=== PATIENT | male | born 1975 | race Caucasian/White ===

== ENCOUNTER 2020-01-23 16:40 | Emergency (ER) | payer OTHER, SELFPAY ==
--- NOTE | ~2020-01-23 | CT_ITS ---
EXAMINATION: CT soft tissue neck w con DATE: 01/23/2020 18:26 INDICATION: Left facial and neck swelling. TECHNIQUE: Computed tomography (CT) of the neck was performed with 100 mL Omnipaque-350 intravenous c ontrast. Automated exposure control and iterative reconstruction technique were employed. The dose-le ngth product was 569.09 mGy-cm. COMPARISON: None FINDINGS: Skin thickening and subtle subcutaneous stranding at the left cheek. No abscess or other abnormal flu id collections. Submandibular and parotid glands are symmetric. There are scattered normal-sized lym ph nodes in the neck, no lymphadenopathy. No masses identified. Thyroid gland is unremarkable. Orbits , paranasal sinuses, mastoid air cells and middle ear cavities are normal. Visualized portions of the brain are unremarkable. The vasculature is patent and normal in caliber with contrast mixing and brionna w artifact in the bilateral internal jugular veins. Airway is unremarkable. Superior mediastinum is unremarkable. Mild lower thoracic spondylosis.No acute osseous abnormality. Mild emphysema at the ri ght apex. IMPRESSION: 1. Nonspecific skin thickening and subtle subcutaneous stranding at the left cheek which could be rel ated to cellulitis. No abscess. Reviewed, dictated and finalized at location A. T CULTURE OPERATOR IMPRESSION: 1. Nonspecific skin thickening and subtle subcutaneous stranding at the left ch washoe which could be related to cellulitis. No abscess.
[2020-01-23 16:45] VITALS: BP 133/92; PULSE 86; RESP 20; TEMP 36.5; O2SAT 99
[2020-01-23 17:49] LABS: Basophils Absolute Auto 0.1 K/mm3 (0.0-0.1); Basophils Percent Auto 0.5 % (0.2-1.2); Eosinophils Absolute Auto 0.2 K/mm3 (0-0.3); Eosinophils Percent Auto 1.6 % (0-4.4); Hemoglobin 15.9 g/dL (14.0-18.0); Immature Granulocyte Absolute 0.04 K/mm3 (0.00-0.031); Immature Granulocyte Percent A 0.4 % (0-0.5); Lymphocytes Absolute Auto 2.69 K/mm3 (0.9-3.2); Lymphocytes Percent Auto 24.5 % (18.3-44.2); Mean Corpuscular HGB Conc 33.1 g/dl (32-36); Mean Corpuscular Hemoglobin 30.7 pg (26-34); Mean Corpuscular Volume 92.7 fl (80-100); Mean Platelet Volume 10.9 fl (7.4-10.4); Monocytes Absolute Auto 0.9 K/mm3 (0.1-0.6); Monocytes Percent Auto 7.9 % (2.6-8.5); Neutrophils Absolute Auto 7.1 K/mm3 (1.3-6.7); Neutrophils Percent Auto 65.1 % (45.5-73.1); Platelet Count Result 296 k/mm3 (150-375); Red Blood Count 5.18 M/mm3 (4.6-6.20); Red Cell Distribution Width 12.9 % (11.5-14.5)
--- NOTE | 2020-01-23 17:55 | ED.SKABFB ---
HPI - Skin/Abscess/Foreign Bdy General Chief complaint: Skin/Abscess/Foreign Body Stated complaint: NECK SWELLING Time Seen by Provider: 01/23/20 16:46 History of Present Illness HPI narrative: Patient is a 44-year-old male who presents the ER for further evaluation of facial infection. Noticed something similar to a pimple couple days ago which he scratched at. Since then he has had some increased swelling and drainage to the left cheek and swelling going down into the left neck. No difficulty breathing or swallowing. He has been afebrile. He went to his PCPs office today who recommended blood work as well as CT scan of the face. Insurance would not cover the CT scan so he ended up in the ER for further evaluation. He has been given a prescription of antibiotics but has yet to fill them. Related Data Home Medications Medication Instructions Recorded Confirmed dexlansoprazole [Dexilant] mg 01/23/20 tramadol mg 01/23/20 Allergies Allergy/AdvReac Type Severity Reaction Status Date / Time No Known Allergies Allergy Verified 01/23/20 18:57 Review of Systems Review of Systems: All systems reviewed & are unremarkable except as noted in HPI and below Constitutional: Constitutional: Denies chills and Denies fever(s) ENT: Reports system reviewed and no additional complaints, except as documented Respiratory: Respiratory: Denies dyspnea Integumentary/Breasts: Comments: Draining lesions left cheek. PMFSH Past Medical History Medical History (Updated 01/23/20 @ 18:57 by Hayden Rasmussen MD) Carpal tunnel syndrome on both sides Surgical History Surgical History (Updated 01/23/20 @ 17:58 by Hayden Rasmussen MD) H/O shoulder surgery Social History Social History (Updated 01/23/20 @ 17:58 by Hayden Rasmussen MD) Substance use type: does not use Exam Narrative: Exam Narrative: GENERAL: Well-appearing, well-nourished, and in no acute distress. HEAD: Normocephalic, atraumatic. ENT: Mucous membranes moist. Crusted lesions of the left cheek underneath the estevez mild tenderness and slight erythema of the skin. NECK: Supple. No observed swelling of the neck or clavicles. CHEST: Clear to auscultation. No respiratory distress. HEART: Regular rate and rhythm. Normal peripheral pulses. EXTREMITIES: Normal range of motion. No edema. NEURO: Alert and oriented x3. PSYCH: Normal mood and affect. Course Course Emergency Course: Informed of results. His is picked up clindamycin. We will also prescribe Bactroban. Discharge home. Vital Signs Vital signs: Vital Signs Temperature 97.7 F 01/23/20 16:45 Pulse Rate 86 01/23/20 16:45 Respiratory Rate 20 01/23/20 16:45 Blood Pressure 133/92 H 01/23/20 16:45 Pulse Oximetry 99 01/23/20 16:45 Temperature 97.7 F 01/23/20 16:45 Pulse Rate 86 01/23/20 16:45 Respiratory Rate 01/23/20 16:45 Blood Pressure 133/92 H 01/23/20 16:45 Pulse Oximetry 99 01/23/20 16:45 MDM - Skin/Abscess/Foreign Bdy Lab Data Result diagrams: 01/23/20 17:38 01/23/20 17:38 Labs: Lab Results 01/23/20 01/23/20 Range/Units 17:38 17:38 WBC 11.0 H (4.5-10.0) K/mm3 RBC 5.18 (4.6-6.20) M/mm3 Hgb 15.9 (14.0-18.0) g/dL Hct 48.0 (42.0-52.0) % MCV 92.7 (80-100) fl MCH 30.7 (26-34) pg MCHC 33.1 (32-36) g/dl RDW 12.9 (11.5-14.5) % Plt Count 296 (150-375) k/mm3 MPV 10.9 H (7.4-10.4) fl Immature Gran % (Auto) 0.4 (0-0.5) % Neut % (Auto) 65.1 (45.5-73.1) % Lymph % (Auto) 24.5 (18.3-44.2) % Davis % (Auto) 7.9 (2.6-8.5) % Eos % (Auto) 1.6 (0-4.4) % Baso % (Auto) 0.5 (0.2-1.2) % Lymph # (Auto) 2.69 (0.9-3.2) K/mm3 Davis # (Auto) 0.9 H (0.1-0.6) K/mm3 Eos # (Auto) 0.2 (0-0.3) K/mm3 Baso # (Auto) 0.1 (0.0-0.1) K/mm3 Abs Immat Gran (auto) 0.04 H (0.00-0.031) K/mm3 Absolute Neuts (auto) 7.1 H (1.3-6.7) K/mm3 Absolute Nucleated RBC 0.0
[2020-01-23 18:01] LABS: Blood Urea Nitrogen 9 mg/dL (9-20); Calcium 9.1 mg/dL (8.4-10.2); Carbon Dioxide 27 mmol/L (22-30); Chloride 98 mmol/L (98-107); Estimated CRCL calculation 120 ml/min; Estimated Glomerular Filt Rate > 60; Glucose 89 mg/dL (75-110); Potassium 3.8 mmol/L (3.4-5.0); Sodium 139 mmol/L (137-145)
[2020-01-23 19:06] VITALS: BP 130/78; PULSE 80; RESP 20; TEMP 36.8; O2SAT 99
== END 2020-01-23 19:07 | disposition home or self-care (01) ==
PROVIDERS: Emergency Provider Emergency Medicine; PCP Internal Medicine
DX: L03.211 Cellulitis of face (principal)
CPT/HCPCS: 36415; 70491; 80048; 85025; 99284; Q9967

== ENCOUNTER 2022-01-09 08:03 | Outpatient (CLI) | payer OTHER, SELFPAY ==
[2022-01-09 08:47] LABS: Basophils Absolute Auto 0.04 K/mm3 (0.00-0.10); Basophils Percent Auto 0.6 % (0.0-1.0); Eosinophils Absolute Auto 0.32 K/mm3 (0.02-0.50); Eosinophils Percent Auto 5.1 % (1.0-6.0); Hemoglobin 15.1 g/dL (14.0-18.0); Immature Granulocyte Absolute 0.01 K/mm3 (0.00-0.00); Immature Granulocyte Percent A 0.2 % (0.0-0.0); Lymphocytes Absolute Auto 2.56 K/mm3 (1.10-4.50); Mean Corpuscular HGB Conc 32.8 g/dL (32.0-36.0); Mean Corpuscular Hemoglobin 30.9 pg (27.0-31.0); Mean Corpuscular Volume 94.3 fL (78.0-102.0); Mean Platelet Volume 10.2 fl (8.7-11.0); Monocytes Absolute Auto 0.61 K/mm3 (0.10-0.90); Monocytes Percent Auto 9.8 % (2.0-11.0); Neutrophils Absolute Auto 2.7 K/mm3 (1.7-7.2); Neutrophils Percent Auto 43.3 % (50.0-70.0); Platelet Count Result 279 K/mm3 (150-420); Red Blood Count 4.88 M/mm3 (4.70-6.10); Red Cell Distribution Width 13.1 % (11.6-14.4); White Blood Count 6.3 K/mm3 (4.8-10.8)
[2022-01-09 09:09] LABS: Alanine Aminotransferase 56 U/L (16-63); Albumin Level 3.8 g/dL (3.4-5.0); Alkaline Phosphatase 62 U/L (46-116); Anion Gap 8 mmol/L (8-16); Aspartate Amino Transferase 20 U/L (15-37); Bilirubin,Total 0.3 mg/dL (0.00-1.00); Blood Urea Nitrogen 10 mg/dL (7-18); Calcium 8.6 mg/dL (8.5-10.1); Carbon Dioxide 30 mmol/L (21-32); Chloride 105 mmol/L (98-108); Cholesterol 203 mg/dL (0-200); Estimated Glomerular Filt Rate > 60; Glucose 104 mg/dL (70-99); HDL Direct 44 mg/dL (40-60); LDL Cholesterol Calculated 148 mg/dL (<130); Osmolality Calculated 295 mOsm/kg (285-295); Potassium 4.9 mmol/L (3.5-5.1); Sodium 143 mmol/L (136-145); Thyroid Stimulating Hormone 1.51 uIU/mL (0.36-3.74); Total Protein 6.8 g/dL (6.4-8.2); Triglycerides 56 mg/dL (0-150)
[2022-01-12 20:47] LABS: T4 Thyroxine 6.2 mcg/dL (4.9-10.5)
[2022-01-13 06:53] LABS: Total Triiodothyronine (T3) 135 ng/dL (76-181)
[2022-01-14 11:57] LABS: Testosterone Free 99.8 pg/mL (35.0-155.0); Testosterone Total 504 ng/dL (250-1100)
== END 2022-01-09 08:04 | disposition home or self-care (01) ==
LOC: CHSLAB 08:05
PROVIDERS: PCP Internal Medicine; Visit Provider Internal Medicine
DX: R53.83 Other fatigue (principal); K21.9 Gastro-esophageal reflux disease without esophagitis
CPT/HCPCS: 36415; 80053; 80061; 84402; 84403; 84436; 84443; 84480; 85025

== ENCOUNTER 2022-10-02 07:20 | Emergency (ER) | payer OTHER, SELFPAY ==
--- NOTE | ~2022-10-02 | XR_ITS ---
XR hand RT min 3V DATE: 10/02/2022 07:46 INDICATION: Right hand pain TECHNIQUE: 3 views COMPARISON: None FINDINGS: No fracture or dislocation, periosteal reaction or bone destruction, joint space narrowing, erosive change or chondrocalcinosis. IMPRESSION: Negative Reviewed, dictated and finalized at location A. IMPRESSION: Negative
[2022-10-02 07:25] VITALS: BP 155/90; PULSE 89; RESP 16; TEMP 36.6; O2SAT 96
--- NOTE | 2022-10-02 07:56 | ED.UPPEXIN ---
HPI - Extremity Injury (Upper) General Chief Complaint: Extremity Injury, Upper Stated Complaint: right hand injury Time Seen by Provider: 10/02/22 07:25 Source: patient Mode of arrival: ambulatory Limitations: no limitations History of Present Illness HPI narrative: this is a 46-year-old gentleman that presents with a right hand injury that occurred while at work it was wearing gloves in had his hand and glove caught in a rotator twisting the glove off and causing inflammation and swelling of the right hand with some bruising, patient took pain medication prior to arrival current pain levels about a 5/10 has good range of motion although tender and swelling does feel some throbbing and slight numbness at the tip of his right thumb. Otherwise have has good radial pulses on the right. complaint: injury to: right Onset (ago): hour(s) Other Extremity Injury: Right: hand ( bruising with swelling) Handedness: right Place: work Severity: moderate Severity scale (1-10): 5 Relieving factors: cold therapy and immobilization Exacerbating factors: movement of extremity Context: injury Associated symptoms: denies other symptoms Treatments prior to arrival: NSAIDS Related Data Home Medications Medication Instructions Recorded Confirmed dexlansoprazole 60 mg 60 mg PO DAILY 01/23/20 10/02/22 capsule,biphase delayed release (Dexilant) tramadol 50 mg tablet 50 mg PO PRN PRN Pain 01/23/20 10/02/22 Allergies Allergy/AdvReac Type Severity Reaction Status Date / Time No Known Allergies Allergy Verified 10/02/22 08:19 Review of Systems Review of Systems: All systems reviewed & are unremarkable except as noted in HPI and below PMFSH Past Medical History Medical History Carpal tunnel syndrome on both sides Surgical History Surgical History H/O shoulder surgery Social History Social History Substance use type: does not use Exam Const: General: healthy appearing, no acute distress and alert Nutritional Appearance: well nourished Orientation/consciousness: patient oriented x3 Limitations: no limitations HENMT: Head: normal to inspection Face/Nose/Sinus: Normal external nose present Face and sinus: normal facial exam Mouth: Yes Normal oral and palatal mucosa present Eyes: Conjunctivae: conjunctivae normal EOM: EOMs intact bilaterally Direct Ophthalmoscopy: no photophobia Neck: Neck: normal visual inspection Chest: Chest palpation & inspection: normal inspection of the chest Resp: Effort & Inspection: normal respiratory effort Cardio: Rate: regular rate Rhythm: regular rhythm GI: GI Palp: Yes Soft to palpation Auscultation: normal bowel sounds Rectal Exam: normal sphincter tone Urinary Catheter: Urinary Catheter: patent and draining Back/Spine/Pelvis: Back: no CVA tenderness Skin: General skin exam: normal color Wounds: wounds noted Other: Bruising with swelling right hand and thenar region Neuro: General: patient oriented x3 Cranial nerves: Yes Nystagmus not present Speech: normal speech Extrem: General: normal to inspection Psych: Mental Status: mental status grossly normal Affect: normal affect Course Course Emergency Course: patient declined pain medicine at this time did take some tramadol prior to arrival, x-rays reviewed with patient I supplied to affected area. Critical Care Time Critical Care Time Critical Care Time: No Discharge Plan Discharge Clinical Impression: Hand sprain Qualifiers: Encounter type: initial encounter Laterality: right Qualified Code(s): S63.91XA - Sprain of unspecified part of right wrist and hand, initial encounter Patient Disposition: Home, Self-Care Condition: Stable Instructions: Antibiotic Form, Hand Sprain (ED) Prescriptions: No Action tramadol 50 mg tablet
== END 2022-10-02 08:40 | disposition home or self-care (01) ==
PROVIDERS: Emergency Provider Emergency Medicine; PCP Internal Medicine
DX: S63.91XA Sprain of unspecified part of right wrist and hand, initial encounter (principal)
CPT/HCPCS: 73130; 99283

== ENCOUNTER 2023-03-10 00:34 | Day surgery (SDC) | payer OTHER, SELFPAY ==
[2023-02-22 13:27] VITALS: BMI 33.3
--- NOTE | 2023-03-09 12:49 | PM.HPGS ---
History of Present Illness History of Present Illness Consent: Risks, benefits, and alternatives have been discussed and questions answered. Patient agrees to proceed with procedure. Chief complaint: neoplasm screening Narrative: Silas Pickard is a 47 year old male Referred for colon cancer screening. Review of Systems Review of Systems: All systems reviewed & are unremarkable except as noted in HPI and below PMFSH Past Medical History Medical History Carpal tunnel syndrome on both sides Surgical History Surgical History H/O shoulder surgery Social History Social History Years smoked: 18 Smoking status: Current every day smoker Tobacco type: cigarettes Substance use type: does not use Living arrangements: with family Spiritual care concerns: No Meds Home Medications and Allergies Home Medications Medication Instructions Recorded Confirmed Type dexlansoprazole 60 mg 60 mg PO DAILY 01/23/20 02/22/23 History capsule,biphase delayed release (Dexilant) tramadol 50 mg tablet 50 mg PO PRN PRN Pain 01/23/20 02/22/23 History Allergies Allergy/AdvReac Type Severity Reaction Status Date / Time No Known Allergies Allergy Verified 02/22/23 13:26 Exam Resp: Auscultation: clear to auscultation bilaterally Cardio: Rate: regular rate Rhythm: regular rhythm GI: GI Palp: Yes Soft to palpation and No Tenderness to palpation present (GI) Assessment and Plan Assessment and plan (1) Colon cancer screening: Code(s): Z12.11 - Encounter for screening for malignant neoplasm of colon Status: Acute Assessment and Plan: Colonoscopy with possible biopsy or polypectomy or cautery or injection of substances.
[2023-03-10 06:21] VITALS: BP 120/88; PULSE 56; RESP 18; TEMP 36.6; O2SAT 56; BMI 33.2
[2023-03-10] MEDS: LACTATED RINGERS 1,000 ML 150 ML IV CONT (06:29)
--- NOTE | 2023-03-10 07:20 | P.PNAN_ITS ---
Anes - Initial Pre Proc Eval Procedure: Operation Date: 03/10/23 07:30 Proposed Procedures p Screening Colonoscopy - Andrew Moreno MD Date/Time: 03/10/23 07:20 Surgeon: Andrew Moreno MD Pre Op Diagnosis: neoplasm screening Patient Data Age: 47 Gender: M Height: 1.75 m Weight: 102.1 kg Last Vital Signs Temp 97.9 F 03/10/23 06:21 Pulse 56 L 03/10/23 06:21 Resp 18 03/10/23 06:21 BP 120/88 03/10/23 06:21 Pulse Ox 56 L 03/10/23 06:21 O2 Del Method Room Air 03/10/23 06:21 Allergies Allergy/AdvReac Type Severity Reaction Status Date / Time No Known Allergies Allergy Verified 02/22/23 13:26 Home Medications Medication Instructions Recorded Confirmed Type dexlansoprazole 60 mg 60 mg PO DAILY 01/23/20 02/22/23 History capsule,biphase delayed release (Dexilant) tramadol 50 mg tablet 50 mg PO PRN PRN Pain 01/23/20 02/22/23 History Patient hx anesthesia problems: none Family hx anesthesia problems: none Results Review: All pre-operative results and documents have been reviewed as part of the pre- operative evaluation. [facility] Past Medical History Medical History Carpal tunnel syndrome on both sides Surgical History Surgical History H/O shoulder surgery Social History Social History Years smoked: 18 Smoking status: Current every day smoker Tobacco type: cigarettes Substance use type: does not use Living arrangements: with family Spiritual care concerns: No Anes - Eval Final PreProcedure Day of Procedure 03/10/23 07:20 Patient weight: obese Heart: regular rate and rhythm Lungs: clear to auscultation Airway: Mallampati scale class II Neurological: alert and oriented Last oral intake: >/= 8 hours ASA classification: II Emergent: no Anesthetic plan: proceed Anesthesia type and monitoring: general GIVS and standard monitoring Results Review: All pre-operative results and documents have been reviewed as part of the pre- operative evaluation. Informed Consent: The patient's anesthetic plan and its attendant risks and benefits were discussed with the patient/family/POA. Questions were solicited and answers provided to the satisfaction of the patient/family/POA.
[2023-03-10 07:39] VITALS: BP 121/67; PULSE 89; RESP 19; O2SAT 98
[2023-03-10 07:49] VITALS: BP 117/78; PULSE 82; RESP 29; O2SAT 98
[2023-03-10 07:59] VITALS: BP 129/87; PULSE 80; RESP 21; O2SAT 98
== END 2023-03-10 08:05 | disposition home or self-care (01) ==
PROVIDERS: PCP Internal Medicine; Visit Provider Internal Medicine Gastroenterology
PROC: 0DJD8ZZ Inspection of Lower Intestinal Tract, Via Natural or Artificial Opening Endoscopic (ICD-10-PCS; CPT 45378; principal; 2023-03-10 07:30)
DX: Z12.11 Encounter for screening for malignant neoplasm of colon (principal); K57.30 Diverticulosis of large intestine without perforation or abscess without bleeding; D12.4 Benign neoplasm of descending colon; F17.210 Nicotine dependence, cigarettes, uncomplicated; E66.9 Obesity, unspecified; Z68.33 Body mass index [BMI] 33.0-33.9, adult
CPT/HCPCS: 45385; 88305; J2704; J7120

== ENCOUNTER 2025-03-19 15:15 | Outpatient (CLI) | payer OTHER, SELFPAY ==
[2025-03-19 15:31] LABS: Basophils Absolute Auto 0.04 K/mm3 (0.00-0.10); Basophils Percent Auto 0.5 % (0.0-1.0); Eosinophils Absolute Auto 0.16 K/mm3 (0.02-0.50); Eosinophils Percent Auto 1.8 % (1.0-6.0); Hematocrit 43.5 % (40.0-54.0); Hemoglobin 14.2 g/dL (14.0-18.0); Immature Granulocyte Absolute 0.02 K/mm3 (0.00-0.00); Immature Granulocyte Percent A 0.2 % (0.0-0.0); Lymphocytes Absolute Auto 3.01 K/mm3 (1.10-4.50); Mean Corpuscular HGB Conc 32.6 g/dL (32-36); Mean Corpuscular Hemoglobin 30.2 pg (27.0-31.0); Mean Corpuscular Volume 92.6 fL (78.0-102.0); Mean Platelet Volume 10.2 fl (8.7-11.0); Monocytes Absolute Auto 0.67 K/mm3 (0.10-0.90); Monocytes Percent Auto 7.6 % (2.0-11.0); Neutrophils Absolute Auto 4.95 K/mm3 (1.70-7.20); Neutrophils Percent Auto 55.9 % (50.0-70.0); Platelet Count Result 268 K/mm3 (150-420); Red Cell Distribution Width 13.3 % (11.6-14.4); White Blood Count 8.9 K/mm3 (4.8-10.8)
[2025-03-19 16:09] LABS: Alanine Aminotransferase 33 U/L (16-63); Alkaline Phosphatase 78 U/L (46-116); Anion Gap 6 mmol/L (4-12); Aspartate Amino Transferase 21 U/L (15-37); Bilirubin,Total 0.6 mg/dL (0.00-1.00); Blood Urea Nitrogen 10 mg/dL (7-18); Calcium 8.9 mg/dL (8.5-10.1); Carbon Dioxide 31 mmol/L (21-32); Chloride 104 mmol/L (98-108); Cholesterol 193 mg/dL (0-200); Estimated Glomerular Filt Rate > 60; Glucose 79 mg/dL (70-99); HDL Direct 40 mg/dL (40-60); LDL Cholesterol Calculated 141 mg/dL (<130); Osmolality Calculated 290 mOsm/kg (285-295); Potassium 4.4 mmol/L (3.5-5.1); Sodium 141 mmol/L (136-145); Total Protein 7.1 g/dL (6.4-8.2); Triglycerides 62 mg/dL (0-150)
--- OUTSIDE RECORDS SUMMARY | 2025-03-19 17:27 | XMS_ITS | Continuity of Care Document ---
Author Name [facility] Organization [facility] Care Team Providers Care Tin Flipper Name Role Phone [facility] Unavailable Unavailable Problems Combined list of problems from Department of Defense and Veterans Affairs facilities. It does not include entries that were removed or entered in error. Problem Status Onset Date Problem Type Date of Resolution Comments Source visit for: screening exam alcoholism Inactive Condition [facility] visit for: services physical Inactive Condition see paperwork [facility] visit for: administrative purpose Inactive Condition [facility] visit for: screening exam pulmonary tuberculosis Inactive Condition [facility] SHOULDER SPRAIN SUPERIOR GLENOID LABRUM LESION Active Condition [facility] Osteotomy Of The Clavicle Active Condition [facility] Bankart Capsulorraphy Active Condition [facility] Allergies, Adverse Reactions, Alerts Combined list of allergies from Department of Defense and Veterans Affairs facilities. It does not include entries that were removed or entered in error. Substance Category Reaction Severity Reaction type Status Date Reported Comments Source OTHER Drug allergy (disorder) Unknown active [facility] Encounters Combined list of: 1) Encounters from Department of Veterans Affairs facilities going backup to the last 18 months, not all VA inpatient encounters are included; 2) Encounters from the Department of Defense facilities going backup to 280 months. Location Location Details Encounter Type Encounter Number Reason For Visit Attending Provider ADM Date DC Date Status Disposition Source [facility] [place] OUT[facility] [id number] post op follow- up CLAUDY TORRES 10/11 Released with Work/Duty Limitations [facility] [place] [facility] [place] [id number] PT NEEDS REFERAL CLUADY TORRES 01/20 Released with Work/Duty Limitations [facility] [place] [facility] [place] [id number] GILSON WALKER 04/22 Released w/o Limitations [facility] [place] [facility] [place] OUT[facility] [id number] PPD ULISES DIAZ 05/02 Released w/o Limitations [facility] [place] [facility] [place] [id number] PPD NEG ULISES DIAZ 05/04 Released w/o Limitations [facility] [place] [facility] [place] [id number] Part II SEP LILIYA JORDAN 05/05 Released w/o Limitations [facility] [place] [facility] Procedures Combined list of: 1) Procedures from Department of Veterans Affairs facilities going back up to thelast 18 months, not all VA non-surgical procedures are included; 2) All procedures from the Department of Defense facilities. Procedure Procedure Type Code Date Perfomer Comments Sour e PATIENT EDUCATION, NOT OTHERWISE CLASSIFIED, NON-PHYSICIAN PROVIDER, INDIVIDUAL, PER SESSION 09/03/2004 [facility] PATIENT EDUCATION, NOT OTHERWISE CLASSIFIED, NON-PHYSICIAN PROVIDER, INDIVIDUAL, PER SESSION 09/02/2004 [facility] PURE TONE AUDIOMETRY (THRESHOLD); AIR ONLY 08/19/2004 [facility] BEHAVIORAL HEALTH SCREENING TO DETERMINE ELIGIBILITY FOR ADMISSION TO TREATMENT PROGRAM 05/05/2006 [facility] SKIN TEST; TUBERCULOSIS, INTRADERMAL 05/02/2006 [facility] RANGE OF MOTION MEASUREMENTS AND REPORT (SEPARATE PROCEDURE); EACH EXTREMITY (EXCLUDING HAND) OR EACH TRUNK SECTION (SPINE) 08/10/2005 [facility] APPLICATION OF A MODALITY TO 1 OR MORE AREAS; ELECTRICAL STIMULATION (UNATTENDED) 08/05/2005 [facility] EXERCISE EQUIPMENT 06/22/2005 [facility] HEPATITIS A AND HEPATITIS B VACCINE (HEPA-HEPB), ADULT DOSAGE, FOR INTRAMUSCULAR USE 05/25/2005 [facility] Behavioral health screening to determine eligibility for admi ion to treatment program 05/10/2006 AURELIO PATEL [facility] Skin Test Anergy Tuberculin Intradermal Skin Test Anergy Tuberculin Intradermal [id number] 05/02/2006 ULISES DIAZ [facility] Social History Combined list of available smoking, tobacco, and other social history from Department of Defense and Veterans Affairs facilities. Social History Type Response Date Comment Sour e This section is an empty social history section. [facility]
--- OUTSIDE RECORDS SUMMARY | 2025-03-19 17:27 | XMS_ITS | Data Portability ---
Author Organization [facility] Address [address] [place] [address] Care Team Providers Care Early Childhood Teacher Name Role Phone SHAHNAZ TENA Primary Care Provider Assessment Encounter Date Assessment Date Assessment LastModified by Organization Details LastModified Time 03/16/2024 03/16/2024 GERD Dexilant he is also advised to quit smoking warned of the ill effects of tobacco which were included but not limited to increased tumors of the aerodigestive tract increased incidence of heart attack stroke and cancer that could lead to sudden medical illness follow-up 6-month he 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 2 weeks prednisone 400 mg daily x5 days albuterol inhaler. Regular visit in 6 months smoking cessation highly recommended [email or web address] Not available 08/24/2024 13:59:52 Plan of Treatment Reminders Order Date Submit Date Provider Last Modified By Organization Details Last Modified Time Details Appointments None recorde d. Lab lipid panel, serum 2023 024 cyahlma [facility], [address] [facility], [facility] [address], [place], [address], 5 12:33:59 CMP, serum or plasma 2023 024 gwardma [facility], [address] [facility], [address], [place], [address], 5 12:12:58 CBC w/ auto diff 2023 024 [facility], [address] [facility], [address], [place], [address], 5 12:12:58 CBC 2018 019 bbertoglioma [facility], [address] [facility], [address], [place], [address], 9 15:49:23 CMP, serum or plasma 2018 019 bbertoglioma [facility], [address] [facility], [address], [place], [address], 9 15:49:23 lipid panel, serum 2018 [facility] [address] [facility], [address], [place], [address], 9 15:49:24 unliste d lab - complia pre drug analysi s, ur 2018 019 [facility], [address] [facility], [facility] [address], [place], [address], 9 15:49:25 Referral None recorde d. Procedures None recorde d. Surgeries None recorde d. Imaging XR, chest 2023 [facility], [address], [address], [place], [address], 5 12:14:43 Medication Orders albuter ol sulfate HFA 90 mcg/act uation aerosol inhaler 2023 024 [id number], [address], [id number], 4 17:28:59 cefurox allan axetil 500 mg tablet 2023 024 [place] [address] [facility] #[id number], [address], [place], [id number], 4 17:28:59 prednis one 20 mg tablet 2023 024 [facility] #[id number], [address], [place], [id number], 4 17:28:59 Dexilan t 60 mg capsule , delayed release 2019 [facility] [address] [place] [address], [address], 0 16:16:18 tramado l 50 mg tablet 2019 020 [facility], [address] [place] [address], [address], 4 12:16:28 tramado l 50 mg tablet [address] [facility], [address] [place] [address], [address], 4 12:16:28 tramado l 50 mg tablet [address] [facility], [address] [place] [address], [address], 4 12:16:28 cyclobe nzaprin e 10 mg tablet 2018 [facility] [address] [place] [address], [address], 0 16:11:04 Patient TargetsNo targets recorded. Patient Instructions Encounter Date Encounter Id Patient Instructions Last Modified By Organization Details Last Modified Time 12/25/2018 [id number] hamstring strain : care instructions jnanney Not available 12/25/2018 15:45:49 A healthy lifestyle: care instructions jnanney Not available 12/25/2018 15:48:14 11/09/2019 [id number] earwax blockage: care instructions anney Not available 11/09/2019 15:25:33 06/30/2020 [id number] back care and preventing injuries: care instructions jnanney Not available 06/30/2020 16:14:45 08/23/2024 [id number] A healthy lifestyle: care instructions Not available 08/23/2024 17:28:59 Quitting Tobacco : Care Instructions [email or web address] Not available 08/23/2024 17:28:59 Reason for Referral None Reported. Results Created Date Observation Date Name Description Value Unit Range Abnormal Flag Note LastModifiedBy Organization Detail LastModifiedTime 07/12/2007/12/2023 Triio dothy billy e (T3) Free [Mass /volu me] in Serum or Plasm a free T3 free T3 Not Available Not Available 01/14/2025 12:53:34 07/12/20 23 07/12/2023 Thyro tropi n [Unit s/vol ume] in Serum or Plasm a thyroid-stim ulating hormone thyro id-st imula ting hormo ne Not Available Not Available 01/14/2025 12:53:34 07/12/20 23 07/12/2023 Lipid 1995 panel - Serum or Plasm a cholesterol high darío stero l Not Available Not Available 01/14/2025 12:53:34 07/12/20 23 07/12/2023 Lipid 1995 panel - Serum or Plasm a triglyceride s trigl yceri edel Not Available Not Available 01/14/2025 12:53:34 07/12/20 23 07/12/2023 Lipid 1995 panel - Serum or Plasm a HDL cholesterol low HDL darío stero l Not Available Not Available 01/14/2025 12:53:34 07/12/20 23 07/12/2023 Lipid 1995 panel - Serum or Plasm a cholesterol in LDL [mass/volume ] in serum or plasma high LDL darío stero l, calcu lated Not Available Not Available 01/14/2025 12:53:34 07/12/20 23 07/12/2023 Compr ehens dejuan metab olic 1999 panel - Serum or Plasm a sodium sodiu m Not Available Not Available 01/14/2025 12:53:34 07/12/20 23 07/12/2023 Compr ehens dejuan metab olic 1999 panel - Serum or Plasm a potassium potas sium Not Available Not Available 01/14/2025 12:53:34 07/12/20 23 07/12/2023 Compr ehens dejuan metab olic 2000 panel - Serum or Plasm a chloride chlor karen Not Available Not Available 01/14/2025 12:53:34 07/12/20 23 07/12/2023 Compr ehens dejuan metab olic 2000 panel - Serum or Plasm a carbon dioxide carbo n dioxi de Not Available Not Available 01/14/2025 12:53:34 07/12/20 23 07/12/2023 Compr ehens dejuan metab olic 1999 panel - Serum or Plasm a anion gap low anion gap Not Available Not Available 01/14/2025 12:53:34 07/12/20 23 07/12/2023 Compr ehens dejuan metab olic 1999 panel - Serum or Plasm a glucose gluco se Not Available Not Available 01/14/2025 12:53:34 07/12/20 23 07/12/2023 Compr ehens dejuan metab olic 2000 panel - Serum or Plasm a BUN BUN Not Available Not Availa ble 01/14/2025 12:53:34 07/12/20 23 07/12/2023 Compr ehens dejuan metab olic 2000 panel - Serum or Plasm a creatinine creat inine Not Available Not Available 01/14/2025 12:53:34 07/12/20 23 07/12/2023 Compr ehens dejuan metab olic 1999 panel - Serum or Plasm a GFR >60 GFR Not Available Not Availa ble 01/14/2025 12:53:34 07/12/20 23 07/12/2023 Compr ehens dejuan metab olic 2000 panel - Serum or Plasm a alkaline phosphatase alkal ine phosp hatas e Not Available Not Available 01/14/2025 12:53:34 07/12/20 23 07/12/2023 Compr ehens dejuan metab olic 2000 panel - Serum or Plasm a alanine aminotransfe rase rafita ne amino trans feras e Not Available Not Available 01/14/2025 12:53:34 07/12/20 23 07/12/2023 Compr ehens dejuan metab olic 1999 panel - Serum or Plasm a aspartate aminotransfe rase aspar chnio amino trans feras e Not Available Not Available 01/14/2025 12:53:34 07/12/20 23 07/12/2023 Compr ehens dejuan metab olic 2000 panel - Serum or Plasm a bilirubin, total bilir ubin, total Not Available Not Available 01/14/2025 12:53:34 07/12/20 23 07/12/2023 Compr ehens dejuan metab olic 2000 panel - Serum or Plasm a calcium calci um Not Available Not Available 01/14/2025 12:53:34 07/12/20 23 07/12/2023 Compr ehens dejuan metab olic 2000 panel - Serum or Plasm a total protein total prote in Not Available Not Available 01/14/2025 12:53:34 07/12/20 23 07[facility] - Serum or Plasm a albumin album in Not Available Not Available 01/14/2025 12:53:34 07/12/20 23 07/12/2023 [facility] ehens dejuan metab olic 2000 panel - Serum or Plasm a globulin globu ralph Not Available Not Available 01/14/2025 12:53:34 07/12/20 23 07/12/2023 [facility] panel - Serum or Plasm a A/G ratio A/G ratio Not Available Not Available 01/14/2025 12:53:34 07/12/20 23 07/12/2023 Thyro xine (T4) free [Mass /volu me] in Serum or Plasm a free T4 free T4 Not Available Not Available 01/14/2025 12:53:34 07/12/20 23 07/12/2023 CBC W Auto Diffe renti al panel - Blood white blood cells white blood cells Not Available Not Available 01/14/2025 12:53:33 07/12/20 23 07/12/2023 CBC W Auto Diffe renti al panel - Blood red blood cells red blood cells Not Available Not Available 01/14/2025 12:53:33 07/12/20 23 07/12/2023 CBC W Auto Diffe renti al panel - Blood hemoglobin hemog lobin Not Available Not Available 01/14/2025 12:53:33 07/12/20 23 07/12/2023 CBC W Auto Diffe renti al panel - Blood hematocrit hemat ocrit Not Available Not Available 01/14/2025 12:53:33 07/12/20 23 07/12/2023 CBC W Auto Diffe renti al panel - Blood mean red cell volume mean red cell volum e Not Available Not Available 01/14/2025 12:53:33 07/12/20 23 07/12/2023 CBC W Auto Diffe renti al panel - Blood mean red cell hemoglobin mean red cell hemog lobin Not Available Not Available 01/14/2025 12:53:33 07/12/20 23 07/12/2023 CBC W Auto Diffe renti al panel - Blood mean RBC HGB concentratio n mean RBC HGB kim ntrat ion Not Available Not Available 01/14/2025 12:53:33 07/12/20 23 07/12/2023 CBC W Auto Diffe renti al panel - Blood red cell distribution width red cell distr ibuti on width Not Available Not Available 01/14/2025 12:53:33 07/12/20 23 07/12/2023 CBC W Auto Diffe renti al panel - Blood platelets plate lets Not Available Not Available 01/14/2025 12:53:33 07/12/20 23 07/12/2023 CBC W Auto Diffe renti al panel - Blood mean platelet volume mean plate let volum e Not Available Not Available 01/14/2025 12:53:33 07/12/20 23 07/12/2023 CBC W Auto Diffe renti al panel - Blood neutrophils neutr ophil s Not Available Not Available 01/14/2025 12:53:33 07/12/20 23 07/12/2023 CBC W Auto Diffe renti al panel - Blood lymphocytes lymph ocyte s Not Available Not Available 01/14/2025 12:53:33 07/12/20 23 07/12/2023 CBC W Auto Diffe renti al panel - Blood monocytes monoc ytes Not Available Not Available 01/14/2025 12:53:33 07/12/20 23 07/12/2023 CBC W Auto Diffe renti al panel - Blood eosinophils eosin ophil s Not Available Not Available 01/14/2025 12:53:33 07/12/20 23 07/12/2023 CBC W Auto Diffe renti al panel - Blood basophils basop hils Not Available Not Available 01/14/2025 12:53:33 07/12/20 23 07/12/2023 CBC W Auto Diffe renti al panel - Blood immature granulocytes immat ure granu locyt es Not Available Not Available 01/14/2025 12:53:33 07/12/20 23 07/12/2023 CBC W Auto Diffe renti al panel - Blood neutrophils, absolute count neutr ophil s, absol tulalip count Not Available Not Available 01/14/2025 12:53:33 07/12/20 23 07/12/2023 CBC W Auto Diffe renti al panel - Blood lymphocytes, absolute count lymph ocyte s, absol tulalip count Not Available Not Available 01/14/2025 12:53:33 07/12/20 23 07/12/2023 CBC W Auto Diffe renti al panel - Blood monocytes, absolute count monoc ytes, absol tulalip count Not Available Not Available 01/14/2025 12:53:33 07/12/20 23 07/12/2023 CBC W Auto Diffe renti al panel - Blood eosinophils, absolute count eosin ophil s, absol tulalip count Not Available Not Available 01/14/2025 12:53:33 07/12/20 23 07/12/2023 CBC W Auto Diffe renti al panel - Blood basophils, absolute count basop hils, absol tulalip count Not Available Not Available 01/14/2025 12:53:33 07/12/20 23 07/12/2023 CBC W Auto Diffe renti al panel - Blood immature granulocytes ,absolute immat ure granu locyt es,ab solut e Not Available Not Available 01/14/2025 12:53:33 07/12/20 23 07/12/2023 CBC W Auto Diffe renti al panel - Blood nucleated red blood cells nucle ated red blood cells Not Available Not Available 01/14/2025 12:53:33 07/12/20 23 07/12/2023 CBC W Auto Diffe renti al panel - Blood NRBC# NRBC# Not Available Not Availa ble 01/14/2025 12:53:33 Result Notes None recorded. Problems Name Problem SNOMED Code Status Onset Date Resolution Date Notes Provider Name and Address Organization Details Recorded Time Low back pain 021321225 Active Sola Valerio MA null, [facility] 6 17:22:10 Impacted cerumen 17189565 Active Sola Valerio MA null, [facility] 6 17:22:10 Knee pain Active Ricardo Santoro PA-C Attn: Accounting ,[address] [facility], [place], [address] , [facility] 6 18:09:31 Problem Notes None recorded. Procedures Surgical History Date Name Laterality Status Provider Name and Address Organization Details Recorded Time Arthroscopic Surgery completed Debora Woodruff MA [facility] 05/08/2015 11:31:54 Imaging Results None recorded. Procedure Notes None recorded. Medical Equipment None Reported. Allergies No known drug allergies Medications Name Sig Start Date Stop Date Status Note LastModified by Organization Details LastModified Time cyclobenz aprine 10 mg tablet Take 1 tablet 3 times a day by oral route as needed for 30 days. 06/30 completed Not Available Not Available Not Available buspirone 5 mg tablet Take 1 tablet twice a day by oral route, for anxiety. 2024 active Not Available Not Available Not Avai lable prednison e 20 mg tablet TAKE 2 TABLETS BY MOUTH EVERY DAY FOR 5 DAYS active Not Available Not Available No t Available Zithromax Z-Juan Carlos 250 mg tablet TAKE 2 TABLETS (500 MG) BY ORAL ROUTE ONCE DAILY FOR 1 DAY THEN 1 TABLET (250 MG) BY ORAL ROUTE ONCE DAILY FOR 4 DAYS 06/13 completed Not Available Not Available Not Available tramadol 50 mg tablet TAKE 1 TABLET BY MOUTH EVERY 4-6 HOURS NEEDED 03/16 completed Not Available Not Available Not Available hydrocort isone acetate 25 mg rectal supposito ry Insert 1 supposit ory twice a day by rectal route for 10 days. 2024 active Not Available Not Available Not Avai lable Tessalon Perles 100 mg capsule Take 1 capsule 3 times a day by oral route as needed. 06/13 completed Not Available Not Available Not Available Cipro 500 mg tablet Take 1 tablet every 12 hours by oral route for 10 days. 2014 active Not Available Not Available Not Avai lable Valtrex 1 gram tablet Take 1 tablet 3 times a day by oral route for 7 days. 2023 active Not Available Not Available Not Avai lable diclofena c sodium 75 mg tablet,de layed release Take 1 tablet twice a day by oral route for 30 days. 06/30 completed Not Available Not Available Not Available Cheratuss in AC 10 mg-100 mg/5 mL oral liquid Take 10 mL every 4 hours by oral route. 06/13 completed Not Available Not Available Not Available cefuroxim e axetil 500 mg tablet TAKE 1 TABLET BY MOUTH TWICE DAILY active Not Available Not Available No t Available methylpre dnisolone 4 mg tablets in a dose pack FOLLOW PACKAGE DIRECTIO NS 08/23 completed Not Available Not Available Not Available albuterol sulfate HFA 90 mcg/actua tion aerosol inhaler INHALE 2 PUFFS BY MOUTH EVERY 4 HOURS active Not Available Not Available No t Available Lomotil 2.5 mg-0.025 mg tablet Take 2 tablets 4 times a day by oral route for 3 days. 06/13 completed Not Available Not Available Not Available atenolol 50 mg tablet Take 1 tablet every day by oral route for 90 days. 06/13 completed Not Available Not Available Not Available azithromy hollis 500 mg tablet Take 1 tablet every day by oral route for 3 days. 11/30 completed Not Available Not Available Not Available tadalafil 20 mg tablet TAKE 1 TABLET BY MOUTH 30 MINUTES BEFORE SEXUAL ACTIVITY . NO MORE THAN 1 IN 24 HOURS 08/23 completed Patient stated he does not use this anymore Not Available Not Available Not Available dexlansop razole 60 mg capsule,b iphase delayed release TAKE 1 CAPSULE BY MOUTH DAILY active Not Available Not Available No t Available Vitals Date Recorded Body height Body mass index (BMI) Body weight Body temperature Oxygen saturation Oxygen saturation in Arterial blood by Pulse oximetry Heart rate Systolic blood pressure Diastolic blood pressure Provider Name and Address Organization Details Last Updated DateTime 9 172.72 cm 32 kg/m2 77631.8 3 g 98.6 [degF] 97 % 97 % 127 /min 110 mm[Hg] 82 mm[Hg] Chen Landry MA [facility] 9 15:17:34 Date Recorded Body height Body mass index (BMI) Body weight Oxygen saturation Oxygen saturation in Arterial blood by Pulse oximetry Heart rate Systolic blood pressure Diastolic blood pressure Provider Name and Address Organization Details Last Updated DateTime 9 172.72 cm 32.4 kg/m2 03338.1 7 g 98 % 98 % 114 /min 122 mm[Hg] 84 mm[Hg] Sola Valerio MA [facility] 9 15:03:08 Date Recorded Body height Body mass index (BMI) Body weight Oxygen saturation Oxygen saturation in Arterial blood by Pulse oximetry Heart rate Systolic blood pressure Diastolic blood pressure Provider Name and Address Organization Details Last Updated DateTime 4 175.26 cm 32.5 kg/m2 22436.4 g 98 % 98 % 98 /min 126 mm[Hg] 74 mm[Hg] Carmen Tena MA [facility] 4 12:21:14 Date Recorded Body height Body mass index (BMI) Body weight Heart rate Oxygen saturation Oxygen saturation in Arterial blood by Pulse oximetry Systolic blood pressure Diastolic blood pressure Provider Name and Address Organization Details Last Updated DateTime 4 175.26 cm 32.3 kg/m2 57159.5 7 g 99 /min 96 % 96 % 118 mm[Hg] 64 mm[Hg] Carmen Tena MA [facility] 4 15:03:55 Social History Question Answer Notes LastModified by Organizat ion Details LastModified Time Tobacco Smoking Status Current Every Day Smoker Debora Woodruff MA null, [facility] 05/08/2015 11:31:54 What Is Your Level Of Alcohol Consumption? Occasional Information not available 12/25/2018 Are You Blind Or Do You Have Difficulty Seeing? No Information not available 03/16/2024 What Is Your Level Of Caffeine Consumption? Occasional Information not available 12/25/2018 How Much Tobacco Do You Chew? None Information not available 12/25/2018 In The 14 Days Before Symptom Onset, Have You Had Close Contact With A Laboratory-confir med COVID-19 While That Case Was Ill? No Information not available 03/16/2024 In The 14 Days Before Symptom Onset, Have You Had Close Contact With A Person Who Is Under Investigation For COVID-19 While That Person Was Ill? No Information not available 03/16/2024 Have You Been To An Area Known To Be High Risk For COVID-19? No Information not available 03/16/2024 Are You Currently Employed? Yes Information not available 06/30/2020 Are You Deaf Or Do You Have Serious Difficulty Hearing? No Information not available 03/16/2024 What Type Of Diet Are You Following? REGULAR Information not available 12/25/2018 Which Illicit Or Recreational Drugs Have You Used? None Information not available 12/25/2018 Do You Or Have You Ever Used E-cigarettes Or Vape? 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 Yes Information not available 03/16/2024 Live Alone Or With Others? With Others Information not available 06/30/2020 What Was The Date Of Your Most Recent Tobacco Screening? 08/23/2024 Information not available 08/23/2024 What Is Your Relationship Status? Information not available 03/16/2024 Do You Use Your Seat Belt Or Car Seat Routinely? Yes Information not available 03/16/2024 Do You Have Smoke And Carbon Monoxide Detectors In Your Home? Yes Information not available 03/16/2024 Do You Or Have You Ever Used Smokeless Tobacco? Never Used Smokeless Tobacco Information not available 06/30/2020 How Much Tobacco Do You Smoke? 1 PPW 1 Pack/ 3 Days Information not available 12/25/2018 General Stress Level Low Information not available 06/30/2020 Do You Use Any Illicit Or Recreational Drugs? No Information not available 03/16/2024 Do You Use Sunscreen Routinely? Yes Information not available 03/16/2024 Has Tobacco Cessation Counseling Been Provided? Yes Information not available 08/23/2024 On What Date Was Tobacco Cessation Counseling Provided? 08/23/2024 Information not available 08/23/2024 How Many Years Have You Smoked Tobacco? 20 Information not available 12/25/2018 Do You Or Have You Ever Used Any Other Forms Of Tobacco Or Nicotine? No Information not available 08/23/2024 Sex: Male Functional Status Question Answer Note LastModified by Organization D etails LastModified Time Are you able to care for yourself? Yes Information n ot available 06/30/2020 What is your exercise level? None Information not available 12/25/2018 Mental Status None recorded. Family History Nothing Reported. Medical History Condition Response Coronary Artery Disease N Other Y High Blood Pressure Y Atrial Fibrillation N Kidney or Bladder Problems N Thyroid Problems N GI Problems N Depression N COPD N Blood Clots N Skin Problems N Anemia N Heart Attack ([place]) N Anxiety Disorder N Diabetes N Muscle, Joint, or Bone Problems Y Seizures/Epilepsy N Acid Reflux (GERD) Y Cancer N Stroke N Asthma N Allergies N High Cholesterol N Hepatitis N Liver Disease N Headaches N Heart Failure N Osteoporosis N Immunizations Vaccine Type Date Status Note Provider Nam e and Address Organization Details Recorded Time COVID-19, mRNA, LNP-S, PF, 30 mcg/0.3 mL dose 02/03/2021 completed FREIDA Matthews - [facility] 05/01/2021 08:50:41 COVID-19, mRNA, LNP-S, PF, 30 mcg/0.3 mL dose 02/24/2021 completed FREIDA Matthews - [facility] 05/01/2021 08:51:01 Tdap 08/26/2016 completed [facility] Available [facility] 02:30:17 Past Encounters Encounter ID Performer Location Encounter Start Date Encounter Closed Date Diagnosis/Indication Diagnosis SNOMED-CT Code Diagnosis ICD10 Code Diagnosis Note [id number] ANGEL Rodriguez [facility] [address] [place] [address] 05/08/2015 11:22:46 05/08/2015 12:48:38 Low back pain 249934043 [id number] ANGEL Rodriguez [address] [place] [address] 07/03/2015 14:22:49 07/03/2015 15:20:28 Impacted cerumen 03737059 [id number] Ricardo Santoro PA-C [facility] [address] [place] [address] 01/14/2016 17:18:52 01/15/2016 09:04:29 Knee pain 05396587 M25.665 [id number] Ricardo Santoro PA-C [facility] [address] [place] [address] 08/26/2016 14:20:09 08/26/2016 15:38:19 Administration of tetanus vaccine 715331548 Z23 [id number] Ricardo Santoro PA-C [facility] [address] [place] [address] 11/30/2016 14:51:00 11/30/2016 16:25:02 Essential hypertension 26388342 I10 [id number] Ricardo Santoro PA-C [facility] [address] [place] [address] 12/07/2016 17:12:53 12/07/2016 19:29:48 Essential hypertension 74469308 I10 Type 2 karissa betes mellitus 88966006 E11.9 Lumbar radiculopathy 128 403985 M54.16 [id number] Ricardo Santoro PA-C [facility] [address] [place] [address] 03/16/2017 14:23:30 03/16/2017 15:43:49 Impacted cerumen 26846173 H61.23 [id number] Ricardo Santoro PA-C [facility] [address] [place] [address] 06/22/2017 14:46:25 06/22/2017 15:41:03 Acute urticaria 431138951 L50.1 [id number] ANIKA Mike [facility] [address] [place] [address] 10/12/2017 15:44:57 10/13/2017 13:43:18 Productive cough 34982612 R05 Upper resp iratory infection 48286779 J06.9 [id number] Ricardo Santoro PA-C [facility] [address] [place] [address] 06/13/2018 15:44:49 06/13/2018 16:51:39 Low back pain 276548239 M54.5 [id number] Ricardo Santoro PA-C [facility] [address] [place] [address] 08/08/2018 15:36:38 08/08/2018 16:31:37 Impacted cerumen in left ear 7162666026 557298 H61.22 Lumbar radiculopathy 128 764303 M54.16 [id number] Ricardo Santoro PA-C [facility] [address] [place] [address] 12/25/2018 14:55:11 12/25/2018 16:11:57 Strain of hamstring tendon 278963759 S76.311A Low back pain 535528627 M54.5 Lumbar radiculopathy 128 678836 M54.16 [id number] Ricardo Santoro PA-C [facility] [address] [place] [address] 11/09/2019 14:51:50 11/14/2019 11:28:07 Impacted cerumen 05334424 H61.23 Lumbar radiculopathy 128 855773 M54.16 Mixed hyperlipidemia 267 677107 E78.2 Long-term drug therapy [id number] Z79.940 [id number] Ricardo Santoro PA-C [facility] [address] [place] [address] 06/30/2020 15:06:11 07/01/2020 08:15:30 Low back pain 391045216 M54.5 Lumbar radiculopathy 128 577148 M54.16 [id number] Shahnaz Tena MD [facility] (Adult Med) [address] [place] [address] 03/16/2024 11:40:20 03/16/2024 12:59:38 Gastroesophageal reflux disease without esophagitis 488029534 K21.9 [id number] Shahnaz Tena MD [facility] [place] [address] [place] [address] 08/23/2024 14:46:48 08/23/2024 16:06:49 Smoker 80178244 F17.200 Obesity 423213452 E66.8 Gastroesop hageal reflux disease without esophagitis 067826715 K21.9 Bronchitis 58809944 J40 Screening for cardiovascular system disease 922605184 Z13.6 Health Concerns Section Related Observation LastModified by Organization Detai ls LastModified Time None Recorded Concern Status LastModified by Organization Details LastModified Time None Recorded Advance Directives Directive None Recorded Payers Encounter Date Sequence Insurance Name Policy Number Policy Maldonado Covered Member ID Maldonado Member ID Guarantor Name 12/25/2018 1 [facility] [id number] Silas Perdun [id number] Pintip Perdun 11/09/2019 1 [facility] - [employer] (POS [place]) [id number] Silas Perdun [id number] Pintip Perdun 06/30/2020 1 [facility] [employer] [place] [id number] Silas Perdun [id number] Pintip Perdun 03/16/2024 1 [facility] [employer] - [employer] ([place]) [id number] Silas Perdun [id number] Pintip Perdun 08/23/2024 1 [facility] [employer] - [employer] ([place]) [id number] Silas Perdun [id number] Pintip Perdun Notes Date Note Type Note Provider Name and Address Organization Details Recorded Time 12/25/2018 text/html Back PainReporte d bypatient.Location :pain radiating to the buttocks;pain radiating to the legs Quality:tingling;d ull; Catch Severity:worsening ;pain level 4/10;mild (1-4);interference with sleep Duration:chronic Onset/Timinweek s ago Context:Back pain due to injury of knee @ work but workman's comp will not send a denial letter for patient to be able to have insurance company to pay for anything Alleviating Factors:nothing, tried heating pads, icy hot patches Aggravating Factors:movement/p ositioning;twistin g;flexing back;extending back Associated Symptoms:no fever; no weak limbs; no numbness of the legs/feet; no tingling; no incontinence; no shortness of breath also noting that his distal hamstring rt leg is swelling. Ricardo Santoro PA-C Attn: [address] [facility], [place], [address], [facility] [place] 12/25/2018 15:49:08 11/09/2019 text/html left ear cerumen impaction Ricardo Santoro PA-C Attn: [address] [facility], [place], [address], [facility] [place] 11/09/2019 15:27:06 06/30/2020 text/html needs refill of dexilant and tramadol...things are just bernardino... Ricardo Santoro PA-C Attn: [address] [place], [address], [facility] 06/30/2020 16:17:06 03/16/2024 text/html 48-year-old GERD maintained on Dexilant doing fine struggling thumb issue he has been to several specialist and still having that is a work comp case. Shahnaz Tena MD Attn: [address]ing,[address] [place], [address], [facility] 03/17/2024 14:50:57 08/23/2024 text/html GERD doing fine now he has a little bit of cough for about 3 weeks with no fever chills night sweats weight loss hemoptysis really nothing purulent intermittent wheezing Shahnaz Tena MD Attn: [address]ing,[address] [place], [address], [facility] 08/24/2024 14:00:12
--- OUTSIDE RECORDS SUMMARY | 2025-03-19 17:27 | XMS_ITS | Continuity of Care Document ---
Author Organization [facility] Address [address] [place] [address] utive [facility] [address] [place] [address] Phone Care Team Providers Care Demolition Specialist Name Role Phone Sailaja Ray Unavailable Unavailable Procedures Procedure Date Eye Exam, New Patient Advance Directives Directive Yes / No Effective Date File Name No Information Encounters Encounter Description Practice Location Reason(s) For Visit Diagnoses Date Provider Providers Copied on Encounter [facility], [address], [place], [place], [id number], [place] tel:[phone] [facility] No Information [address] , [address], [place], [address], [place]. tel:[phone] Family History Family Member Type Diagnosis Age At Onset No Information Payers Payer name Insurance type Covered alliance party ID Authoriza tion(s) [employer] [id number] Social History Type Description Quantity Date Captured Comments Sex Male Smoking Status No Information Chief Complaint And Reason For Visit No Information Reason For Referral Reason For Referral No Information History Of Present Illness Encounter Date Complaint History Of Prese nt Illness No Information Functional Status Date Functional Assessmen t No Information Instructions Date Instruction Additional Infor mation No Information Assessments Type Assessment Date No Information Patient Care Teams Name Effective Dates (start - stop) Status Members No Information
== END 2025-03-19 15:16 | disposition home or self-care (01) ==
LOC: CHSLAB 15:18
PROVIDERS: PCP Internal Medicine; Visit Provider Internal Medicine
DX: Z13.6 Encounter for screening for cardiovascular disorders (principal)
CPT/HCPCS: 36415; 80053; 80061; 85025